=== PATIENT | male | born 2000 | race American Indian/Alaskan Native ===

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

== ENCOUNTER 2019-09-03 15:01 | Outpatient (CLI) | payer BC ==
[2019-09-03 15:34] LABS: Hematocrit 39.3 % (35.5-45.6); Hemoglobin 13.5 gm/dl (11.8-15.2); Lymphocytes # (Auto) 0.7 K/mm3 (1.2-5.4); Lymphocytes % (Auto) 14.3 % (13.4-35.0); Mean Corpuscular HGB Conc 34 % (32-34); Mean Corpuscular Volume 85 fl (84-94); Monocytes # (Auto) 0.3 K/mm3 (0.0-0.8); Monocytes % (Auto) 6.7 % (0.0-7.3); Red Blood Count 4.64 M/mm3 (3.65-5.03); Red Cell Distribution Width 14.4 % (13.2-15.2)
[2019-09-03 15:37] LABS: Platelet Count 83 K/mm3 (140-440)
[2019-09-03 16:22] LABS: Erythrocyte Sedimentation Rate 64 mm/Hr (0-20)
[2019-09-03 16:37] LABS: Alanine Aminotransferase 109 units/L (7-56); Albumin 4.1 g/dL (3.9-5); BUN/Creatinine Ratio 13; Bilirubin,Direct 2.4 mg/dL (0-0.2); Blood Urea Nitrogen 10 mg/dL (9-20); Hemolysis Index 3
== END 2019-09-03 15:02 | disposition home or self-care (01) ==
LOC: LAB 15:01
PROVIDERS: ATTEND Pediatrics Pediatric Gastroenterology
DX: Q44.2 Atresia of bile ducts (principal)
CPT/HCPCS: 36415; 80053; 82106; 82248; 85025; 85652; 86140

== ENCOUNTER 2020-11-05 15:28 | Outpatient (CLI) | payer BC ==
[2020-11-05 16:14] LABS: Basophils % (Auto) 0.6 % (0.0-1.8); Eosinophils # (Auto) 0.1 K/mm3 (0.0-0.4); Eosinophils % (Auto) 2.2 % (0.0-4.3); Hematocrit 39.3 % (35.5-45.6); Hemoglobin 13.3 gm/dl (11.8-15.2); Lymphocytes # (Auto) 0.5 K/mm3 (1.2-5.4); Lymphocytes % (Auto) 18.5 % (13.4-35.0); Mean Corpuscular HGB Conc 34 % (32-34); Mean Corpuscular Volume 84 fl (84-94); Monocytes # (Auto) 0.2 K/mm3 (0.0-0.8); Monocytes % (Auto) 6.7 % (0.0-7.3); Red Blood Count 4.67 M/mm3 (3.65-5.03); Red Cell Distribution Width 16.1 % (13.2-15.2)
[2020-11-05 16:20] LABS: INR 0.88 (0.87-1.13)
[2020-11-05 16:26] LABS: Alanine Aminotransferase 226 units/L (7-56); Albumin 4.1 g/dL (3.9-5); Blood Urea Nitrogen 9 mg/dL (9-20); Calcium 9.1 mg/dL (8.4-10.2); Hemolysis Index 1
[2020-11-05 16:47] LABS: BUN/Creatinine Ratio 13
[2020-11-05 17:18] LABS: Platelet Count 74 K/mm3 (140-440)
--- NOTE | 2020-11-05 17:37 | Magnetic Resonance Report ---
MRI abdomen with and without contrast HISTORY: BILAIARY ATRESIS. TECHNIQUE: 15 mL of MultiHance was given intravenously. COMPARISON: MRI of the abdomen with contrast from 12/18/2017 FINDINGS: Lung bases are clear and there is no acute osseous abnormality. ABDOMEN: Extensive cystic changes seen along the intrahepatic biliary ductal system throughout the li katelyn with a central predominance. No stone disease identified and likewise no abnormal enhancement. Ga llbladder is normal. The CBD is not well seen and may simply be tiny in size. There is no liver lesio n. Splenomegaly is again noted and appears largely similar to the previous exam. The main portal vein is patent and measures 15 mm. No pathologic peritoneal or retroperitoneal adenopathy. The pancreas, adrenals, kidneys, and visualized GI tract appear unremarkable. IMPRESSION: Stable extensive intrahepatic peribiliary cystic change with no hepatic lesion and with stable splenomegaly. There are again several differential considerations ranging from peribiliary cys ts to PSC to Caroli's disease; however, although there is persistent splenomegaly the liver does not appear overtly cirrhotic in configuration. Signer Name: Juan Carlos Moore MD Signed: 11/05/2020 5:32 PM Workstation Name: [id number]
== END 2020-11-05 15:29 | disposition home or self-care (01) ==
LOC: MRI 15:28
PROVIDERS: ATTEND Nurse Anesthetist, Certified Registered
DX: R16.1 Splenomegaly, not elsewhere classified (principal); Q42.2 Congenital absence, atresia and stenosis of anus with fistula
CPT/HCPCS: 36415; 74183; 80053; 85025; 85610; A9575

== ENCOUNTER 2021-03-16 12:16 | Outpatient (CLI) | payer BC ==
[2021-03-16 13:02] LABS: Basophils % (Auto) 1.3 % (0.0-1.8); Eosinophils # (Auto) 0.1 K/mm3 (0.0-0.4); Eosinophils % (Auto) 2.9 % (0.0-4.3); Hemoglobin 12.9 gm/dl (11.8-15.2); Lymphocytes # (Auto) 0.5 K/mm3 (1.2-5.4); Lymphocytes % (Auto) 17.8 % (13.4-35.0); Mean Corpuscular HGB Conc 33 % (32-34); Mean Corpuscular Volume 84 fl (84-94); Monocytes # (Auto) 0.1 K/mm3 (0.0-0.8); Monocytes % (Auto) 4.8 % (0.0-7.3); Platelet Count 102 K/mm3 (140-440); Red Blood Count 4.63 M/mm3 (3.65-5.03); Red Cell Distribution Width 17.9 % (13.2-15.2)
[2021-03-16 13:25] LABS: Alanine Aminotransferase 160 units/L (7-56); Albumin 4.3 g/dL (3.9-5); Blood Urea Nitrogen 9 mg/dL (9-20); Calcium 9.6 mg/dL (8.4-10.2); Hemolysis Index 0
[2021-03-16 13:32] LABS: INR 0.9 (0.87-1.13)
[2021-03-16 14:07] LABS: BUN/Creatinine Ratio 18
== END 2021-03-16 12:17 | disposition home or self-care (01) ==
LOC: LAB 12:16
PROVIDERS: ATTEND Nurse Anesthetist, Certified Registered
DX: K74.60 Unspecified cirrhosis of liver (principal)
CPT/HCPCS: 36415; 80053; 85025; 85610